=== PATIENT | female | born 1965 | race Caucasian/White ===

== ENCOUNTER → 2017-03-31 | Outpatient (CLI) | payer OTHER ==
[~2017-03-31] MED LIST: BUPR75TA9; CLON1TAB3 PO; EZET10TA2; FLUO-125 PO; LAM100T PO; LAMO100T44; [UNRECOGNIZED DRUG - CODE]
[2017-03-31 13:09] LABS: Basophils # (auto) 0.1 uL; Basophils % (auto) 0.6 % (0.0-2.0); Eosinophils # (auto) 0.2 uL; Eosinophils % (auto) 2.2 % (0.0-7.0); Hematocrit 38.7 % (36.0-46.0); Hemoglobin 12.8 g/dL (12.2-16.2); Lymphocytes # (auto) 1.6 uL; Mean Corpuscular Hemoglobin 30.7 pg (28.0-32.0); Mean Corpuscular Hgb Conc. 33.2 g/dL (32.0-36.0); Mean Corpuscular Volume 92.7 fL (80.0-100.0); Mean Platelet Volume 8.2 fL (7.4-10.4); Monocytes # (auto) 0.6 uL; Monocytes % (auto) 7.1 % (0.0-12.0); Neutrophils # (auto) 6.3 uL; Neutrophils % (auto) 72.1 % (37.0-80.0); Platelet Count (auto) 339 10^3/uL (140-450); Red Cell Distribution Width 13.9 % (11.6-16.0); White Blood Cell 8.8 10^3/uL (4.4-10.8)
[2017-03-31 13:20] LABS: Urine Bilirubin Negative (Negative); Urine Blood Negative /uL (Negative); Urine Color Yellow (Yellow); Urine Glucose Normal (Normal); Urine Ketone Negative (Negative); Urine Nitrite Negative (Negative); Urine RBC 1 /hpf (0 - 4); Urine Squamous Epithelial Cell FEW /hpf (<5); Urine Urobilinogen Normal (Negative); Urine pH 6.5 (5.0-8.0)
[2017-03-31 13:42] LABS: Albumin 4.1 g/dL (3.4-5.0); BUN/Creatinine Ratio 12.5; Bilirubin, Total 0.3 mg/dL (0.2-1.0); Calcium 9.4 mg/dL (8.5-10.1)
[2017-03-31 13:48] LABS: Vitamin B12 1127 pg/mL (211-911)
[2017-03-31 14:08] LABS: Temperature: 23.8 C (20.0-25.0)
[2017-03-31 14:44] LABS: Progesterone 0.1 ng/mL (0.15-28)
== END | disposition home or self-care (01) ==
LOC: LAB 12:43
DX: Z12.11 Encounter for screening for malignant neoplasm of colon (principal); F33.9 Major depressive disorder, recurrent, unspecified; N95.1 Menopausal and female climacteric states
CPT/HCPCS: 36415; 80053; 80061; 81001; 82270; 82306; 82607; 82670; 82746; 83001; 83002; 84144; 84443; 85025

== ENCOUNTER 2017-08-20 01:08 | Emergency (ER) | payer MEDICARE, OTHER ==
[~2017-08-20] VITALS: Ht 167.6 cm; Wt 51.7 kg
[2017-08-20] MEDS ORDERED: ONDANSETRON HCL 4 MG/2 ML VIAL IV ONE (01:30)
[2017-08-20] MEDS ORDERED: HYDROmorphone HCL 2 MG/ML VL IV ONE ×2 (01:30→02:45)
[2017-08-20 02:30] VITALS: BP 140/57
[2017-08-20] MEDS ORDERED: HYDROmorphone HCL 2 MG/ML VL ONE (02:40)
== END 2017-08-20 04:01 | disposition home or self-care (01) ==
LOC: EDBD 01:08 → ER 01:10
DX: S22.41XA Multiple fractures of ribs, right side, initial encounter for closed fracture (principal); M25.521 Pain in right elbow; Z88.8 Allergy status to other drugs, medicaments and biological substances; Z88.1 Allergy status to other antibiotic agents; Z88.0 Allergy status to penicillin; W18.39XA Other fall on same level, initial encounter; Y93.89 Activity, other specified; Y92.89 Other specified places as the place of occurrence of the external cause; Y99.8 Other external cause status; Z79.899 Other long term (current) drug therapy
CPT/HCPCS: 71250; 73070; 74176; 96374; 96375; 96376; 99284; J1170; J2405

== ENCOUNTER 2019-01-08 16:25 | Emergency (ER) | payer OTHER, MEDICARE ==
[~2019-01-08] VITALS: Ht 167.6 cm; Wt 55.3 kg
[~2019-01-08 16:25] MED LIST changes: -CLON1TAB3 PO; +CLON1TAB4 PO; -EZET10TA2; +EZET10TA6
[2019-01-08 17:03] LABS: Urine WBC None Seen /hpf (0 - 5)
[2019-01-08 17:10] LABS: Urine Bacteria NONE SEEN /hpf (None Seen); Urine Blood Negative /uL (Negative); Urine Specific Gravity 1.001 (1.001-1.035)
[2019-01-08 18:07] LABS: Basophils # (auto) 0.1 uL; Basophils % (auto) 0.5 % (0.0-2.0); Eosinophils # (auto) 0.3 uL; Eosinophils % (auto) 2.6 % (0.0-7.0); Hematocrit 40.4 % (36.0-46.0); Hemoglobin 13.7 g/dL (12.2-16.2); Lymphocytes # (auto) 1.7 uL; Lymphocytes % (auto) 17.2 % (10.0-50.0); Mean Corpuscular Hemoglobin 32.2 pg (28.0-32.0); Mean Corpuscular Hgb Conc. 33.9 g/dL (32.0-36.0); Mean Corpuscular Volume 95.1 fL (80.0-100.0); Monocytes # (auto) 0.9 uL; Monocytes % (auto) 8.7 % (0.0-12.0); Platelet Count (auto) 217 10^3/uL (140-450); Red Blood Cells 4.25 10^6/uL (4.0-5.20); Red Cell Distribution Width 13.1 % (11.8-14.3); White Blood Cell 9.9 10^3/uL (4.4-10.8)
[2019-01-08 18:21] LABS: Albumin 4.2 g/dL (3.4-5.0); Potassium 4.4 mmol/L (3.5-5.1)
[2019-01-08] MEDS ORDERED: SODIUM CHLORIDE 0.9% 1,000 ML IVB ONE (18:23)
[2019-01-08 18:24] LABS: BUN/Creatinine Ratio 16.3; Bilirubin, Total 0.8 mg/dL (0.2-1.0); Total Protein 7.4 g/dL (6.4-8.2)
[2019-01-08] MEDS ORDERED: KETOROLAC TROMETH 30 MG/ML 1ML VIAL IV ONE (18:30)
[2019-01-08 18:50] VITALS: BP 122/78
== END 2019-01-08 19:17 | disposition home or self-care (01) ==
LOC: ER 16:27
DX: R10.9 Unspecified abdominal pain (principal); F41.9 Anxiety disorder, unspecified; F32.9 Major depressive disorder, single episode, unspecified; Z88.0 Allergy status to penicillin; Z88.1 Allergy status to other antibiotic agents; Z88.6 Allergy status to analgesic agent
CPT/HCPCS: 36415; 74176; 80053; 81001; 85025; 94761

== ENCOUNTER 2019-06-23 15:39 | Emergency (ER) | payer OTHER, MEDICARE ==
[~2019-06-23] VITALS: Ht 167.6 cm; Wt 59.0 kg
[~2019-06-23 15:39] MED LIST changes: +CLON1TAB10 PO; -CLON1TAB4 PO; +EZET10TA22; -EZET10TA6
[2019-06-23] MEDS ORDERED: MECLIZINE HCL 25 MG TAB PO ONE ×2 (16:00→17:45)
[2019-06-23 16:35] VITALS: BP 154/84
== END 2019-06-23 19:23 | disposition home or self-care (01) ==
LOC: ER 15:39
DX: F41.9 Anxiety disorder, unspecified (principal); F32.9 Major depressive disorder, single episode, unspecified; Z88.0 Allergy status to penicillin; Z88.1 Allergy status to other antibiotic agents; Z88.8 Allergy status to other drugs, medicaments and biological substances; Z79.899 Other long term (current) drug therapy
CPT/HCPCS: 99284; J8597